=== PATIENT | female | born 1995 | race Caucasian/White ===

== ENCOUNTER 2019-09-14 23:43 | Emergency (ER) | payer OTHER ==
[~2019-09-14] VITALS: Ht 149.9 cm; Wt 59.9 kg
[2019-09-14 23:47] VITALS: Ht 149.9 cm; Wt 59.9 kg
[2019-09-15 00:45] VITALS: BP 108/54
== END 2019-09-15 00:45 | disposition home or self-care (01) ==
LOC: ED 23:43
DX: S00.83XA Contusion of other part of head, initial encounter (principal); S20.211A Contusion of right front wall of thorax, initial encounter; S13.4XXA Sprain of ligaments of cervical spine, initial encounter; V49.59XA Passenger injured in collision with other motor vehicles in traffic accident, initial encounter; Y93.89 Activity, other specified; Y92.413 State road as the place of occurrence of the external cause; Y99.8 Other external cause status